=== PATIENT | male | born 1995 | race Hispanic/Latino ===

== ENCOUNTER 2016-06-26 20:22 | Emergency (ER) | payer SELFPAY ==
[~2016-06-26] VITALS: Ht 167.6 cm; Wt 70.0 kg
[~2016-06-26 20:22] MED LIST: AUGMENTIN875TAB PO; ZOFRAN4 M1 PO
[2016-06-26 21:16] LABS: URINE BILIRUBIN - DIPSTICK NEGATIVE (NEGATIVE); URINE BLOOD DIPSTICK NEGATIVE (NEGATIVE); URINE CLARITY CLEAR; URINE COLOR YELLOW; URINE GLUCOSE - DIPSTICK NEGATIVE (NEGATIVE); URINE KETONE NEGATIVE (NEGATIVE); URINE LEUK ESTERASE NEGATIVE (NEGATIVE); URINE NITRITE - DIPSTICK NEGATIVE (Negative); URINE PROTEIN - DIPSTICK NEGATIVE (NEG-TRACE); URINE SPECIFIC GRAVITY >=1.030; URINE UROBILINOGEN - DIPSTICK 0.2 E.U./dL (0.2)
[2016-06-26 21:21] LABS: HEMATOCRIT 44.3 % (39.0-50.0); HEMOGLOBIN 15.4 g/dl (14.0-18.0); IMMATURE GRANULOCYTES 0.3 % (0.0-1.0); MEAN CELL VOLUME 85.9 fL CALC (80.0-100.0); MEAN CORPUSCULAR HGB 29.8 pG CALC (26.0-32.0); MEAN CORPUSCULAR HGB CONC 34.8 g/L CALC (32.0-36.0); NEUT# 8.08 thou/uL (1.82-7.42); RED BLOOD COUNT 5.16 mill/uL (4.70-6.10)
[2016-06-26 21:38] LABS: ALBUMIN 4.7 g/dL (3.2-5.0); ALKALINE PHOSPHATASE 98 u/l (38-126); AMYLASE 77 u/l (30-110); ANION GAP 16 (6-22 (CALC)); BILIRUBIN, TOTAL 0.4 mg/dL (0.0-1.4); BUN 12 mg/dL (9-20); BUN/CREATININE RATIO 13 (12-20 (CALC)); CALCIUM 9.7 mg/dL (8.4-10.2); CARBON DIOXIDE 27 mmol/l (22-30); CHLORIDE 103 mmol/l (95-108); CREATININE 0.9 mg/dL (0.7-1.3); GFR > 60 ML/MIN (>=60 (CALC)); GFR FOR AFR.AMER. > 60 ML/MIN (>=60 (CALC)); GLUCOSE 85 mg/dL (75-110); LIPASE 74 u/l (23-300); POTASSIUM 3.8 mmol/l (3.5-5.1); SGOT/AST 21 u/l (17-59); SGPT/ALT 37 u/l (21-72); SODIUM 143 mmol/l (137-146); TOTAL PROTEIN 7.5 g/dL (6.3-8.2)
[2016-06-26] MEDS ORDERED: BACTRIM DS1 TAB PO (21:48)
[2016-06-26] MEDS ORDERED: ZOFRAN ODT4 MG PO (21:48)
[2016-06-26 22:05] VITALS: BP 128/85
== END 2016-06-26 22:20 | disposition home or self-care (01) | DRG 392 ==
LOC: ED 20:22
PROVIDERS: Emergency Medicine
DX: R10.33 Periumbilical pain (principal); K52.9 Noninfective gastroenteritis and colitis, unspecified; R11.2 Nausea with vomiting, unspecified

== ENCOUNTER 2018-11-06 10:59 | Emergency (ER) | payer BC ==
[~2018-11-06] VITALS: Ht 167.6 cm; Wt 70.0 kg
[~2018-11-06 10:59] MED LIST changes: +BACTRIM DS1 TAB PO; +ZOFRAN ODT4 MG PO
[2018-11-06 11:32] LABS: HEMATOCRIT 44.4 % (39.0-50.0); IMMATURE GRANULOCYTES 0.4 % (0.0-5.0); MEAN CELL VOLUME 85.5 fL CALC (80.0-100.0); MEAN CORPUSCULAR HGB 28.9 pG CALC (26.0-32.0); MEAN CORPUSCULAR HGB CONC 33.8 g/L CALC (32.0-36.0); NEUT# 11.61 thou/uL (1.82-7.42); RED BLOOD COUNT 5.19 mill/uL (4.70-6.10); RED CELL DISTRI WIDTH 12.4 % (11.5-15.5)
[2018-11-06 11:40] LABS: ALBUMIN 5.5 g/dL (3.2-5.0); ALKALINE PHOSPHATASE 111 u/l (38-126); ANION GAP 20 (6-22 (CALC)); BILIRUBIN, TOTAL 0.5 mg/dL (0.0-1.4); BUN 7 mg/dL (9-20); BUN/CREATININE RATIO 10 (12-20 (CALC)); CARBON DIOXIDE 24 mmol/l (22-30); CHLORIDE 101 mmol/l (95-108); CREATININE 0.8 mg/dL (0.7-1.3); GFR > 60 ML/MIN (>=60 (CALC)); GFR FOR AFR.AMER. > 60 ML/MIN (>=60 (CALC)); LIPASE 47 u/l (23-300); POTASSIUM 3.9 mmol/l (3.5-5.1); SODIUM 141 mmol/l (137-146); TOTAL PROTEIN 8.4 g/dL (6.3-8.2)
[2018-11-06 11:41] LABS: SGOT/AST 41 u/l (17-59)
[2018-11-06 12:32] LABS: BARBITURATES NEGATIVE (NEGATIVE); COCAINE NEGATIVE (NEGATIVE); METHADONE NEGATIVE (NEGATIVE); OXCYCODONE NEGATIVE (NEGATIVE); TETRAHYDROCANNABIONOL NEGATIVE (NEGATIVE); TRICYLIC ANTIDEPRESSANTS NEGATIVE (NEGATIVE)
[2018-11-06] MEDS ORDERED: ZOFRAN4 M1 PO (14:17)
[2018-11-06 14:30] VITALS: BP 140/74
== END 2018-11-06 14:40 | disposition home or self-care (01) | DRG 310 ==
LOC: ED 10:59
PROVIDERS: Emergency Medicine
DX: R00.0 Tachycardia, unspecified (principal); R11.10 Vomiting, unspecified
CPT/HCPCS: Q9967

== ENCOUNTER 2018-12-17 11:27 | Emergency (ER) | payer BC ==
[~2018-12-17] VITALS: Ht 167.6 cm; Wt 81.8 kg
[2018-12-17] MEDS ORDERED: ACYCLOVIR400 MG PO (12:18)
[2018-12-17] MEDS ORDERED: AMOX/K CLAV875 M1 PO (12:19)
[2018-12-17] MEDS ORDERED: VITAMIN B-121000 MCG PO (12:20)
[2018-12-17] MEDS ORDERED: UNISOM SLEEP25 MG PO (12:20)
[2018-12-17] MEDS ORDERED: PREDNISONE20 MG PO (12:24)
[2018-12-17 13:26] VITALS: BP 132/92
== END 2018-12-17 13:33 | disposition home or self-care (01) | DRG 74 ==
LOC: ED 11:27
DX: G51.0 Bell's palsy (principal)